=== PATIENT | male | born 1985 | race American Indian/Alaskan Native ===

== ENCOUNTER 2016-12-03 19:47 | Emergency (ER) | payer OTHER ==
[2016-12-03] MEDS: TYLENOL PO ONE (21:06)
--- NOTE | 2016-12-03 23:37 | Emergency Department Report ---
ED Fall HPI - General Chief Complaint: Fall Stated Complaint: FALL Time Seen by Provider: 12/03/16 23:19 Source: patient Mode of arrival: Ambulatory - History of Present Illness Initial Comments: Patient here reported that he fell Friday night down 6-10 steps. He said he was carrying some stuff in his hands and he slipped and fell. Denies any head injury, headache or blurred vision denies any pain or stiffness. Denies any back pain. Complaining abrasions to his lower extremities and both hands and fingers. Pain is 4-10 and no chronic medication taken. Tetanus shot is up-to- date, last year. MD Complaint: fall Onset/Timin -: days(s) Fall From: down stairs (#) (6 steps) When Fall Occurred: # days YACHT HAND (1) Fall Witnessed: yes, by family Place Fall Occurred: home Loss of Consciousness: none Prolonged Down Time?: no Symptoms Prior to Fall: none Location - Extremities: Left: Hand (abrasions and pain), Knee (pain and abrasion ), Foot (abrasiona), Right: Hand, Knee, Foot Severity: mild Severity scale (0 -10): 4 Quality: aching Context: tripped/slipped Associated Symptoms: denies: headache, neck pain, numbness, weakness, chest paint, shortness of breath, abdominal pain, hematuria, unable to walk, lightheaded, vertigo, confusion - Related Data Previous Rx's Medication Instructions Recorded Last Taken Type Cephalexin [Keflex] 500 mg PO Q8HR #21 cap 12/04/16 Unknown Rx Ibuprofen [Motrin] 600 mg PO Q8H PRN #14 tablet 12/04/16 Unknown Rx Allergies Allergy/AdvReac Type Severity Reaction Status Date / Time No Known Allergies Allergy Verified 12/03/16 20:57 ED Review of Systems ROS: Stated complaint: FALL Other details as noted in HPI Comment: All other systems reviewed and negative Constitutional: denies: chills, fever Respiratory: no symptoms reported Cardiovascular: denies: chest pain, palpitations, edema, syncope Gastrointestinal: denies: abdominal pain, nausea, vomiting Musculoskeletal: arthralgia. denies: back pain, joint swelling Skin: other (abrasions) Neurological: denies: headache, weakness, numbness, paresthesias, confusion, abnormal gait, vertigo ED Past Medical Hx - Past Medical History Previous Medical History?: No - Surgical History Past Surgical History?: Yes Additional Surgical History: January 2016 Left Elbow - Family History Family history: no significant - Social History Smoking Status: Current Every Day Smoker Substance Use Type: Alcohol - Medications Home Medications: Home Medications Medication Instructions Recorded Confirmed Last Taken Type Cephalexin [Keflex] 500 mg PO Q8HR #21 cap 12/04/16 Unknown Rx Ibuprofen [Motrin] 600 mg PO Q8H PRN #14 tablet 12/04/16 Unknown Rx ED Physical Exam - General Limitations: No Limitations General appearance: alert, in no apparent distress - Head Head exam: Present: atraumatic, normocephalic, normal inspection - Expanded Head Exam Expanded Head exam: Absent: laceration, abrasion, contusion, hematoma, racoon eyes, post's sign, general tenderness, tenderness of temporal artery, CSF rhinorrhea , CSF otorrhea - Eye Eye exam: Present: normal appearance, PERRL, EOMI. Absent: periorbital swelling , periorbital tenderness Pupils: Present: normal accommodation - Neck Neck exam: Present: normal inspection, full ROM. Absent: tenderness, lymphadenopathy - Respiratory Respiratory exam: Present: normal lung sounds bilaterally. Absent: respiratory distress, chest wall tenderness - Cardiovascular Cardiovascular Exam: Present: regular rate, normal rhythm, normal heart sounds - GI/Abdominal GI/Abdominal exam: Present: soft, normal bowel sounds. Absent: distended, tenderness, guarding, rebound, rigid - Extremities Exam Extremities exam: Present: normal inspection, full ROM, tenderness (mild tenderness at abrasion sites. Which is located on the right hand, fingers left fingers. Knees and both feet.), normal capillary refill, other (capillary refill less than 3 seconds, no signs of tendon injury. No neurovascular compromise. No clubbing cyanosis or edema. +2 pulses.). Absent: pedal edema, joint swelling, calf tenderness - Back Exam Back exam: Present: normal inspection, full ROM. Absent: tenderness, CVA tenderness (R), muscle spasm, paraspinal tenderness, vertebral tenderness, rash noted - Neurological Exam Neurological exam: Present: alert, oriented X3, normal gait, reflexes normal. Absent: motor sensory deficit - Psychiatric Psychiatric exam: Present: normal affect, normal mood - Skin Skin exam: Present: warm, dry, abrasion - Expanded Skin Exam Expanded Type of lesion: Present: abrasion Distribution of rash: RUE, LUE, RLE, LLE Description of rash: Present: tenderness, erythematous (mild erythema). Absent : swelling, vesicular, blisters, discharge, fluctuant, indurated ED Course Vital Signs 12/03/16 12/04/16 20:50 01:05 Temperature 98.8 F 98.1 F Pulse Rate 70 67 Respiratory 20 20 Rate Blood Pressure 142/90 165/77 [Right] O2 Sat by Pulse 100 99 Oximetry - Reevaluation(s) Reevaluation #1: 12/04/16 00:59 Abrasion site cleansed with iodine, normal saline and Neosporin ointment plus site. ED Medical Decision Making - Radiology Data Radiology results: report reviewed X-rays of bilateral knees, bilateral hand and feet reveal no acute fracture or dislocation. - Medical Decision Making ED course: Patient with multiple abrasions status post fall and musculoskeletal pain. Neurological system intact. Abrasions the area cleansed with iodine and normal saline and Neosporin ointment placed to side. Patient tetanus shot is up -to-date. Discussed with patient that I'll put him on antibiotic to prevent infection because the sides look erythema without any drainage. Discussed x- rays with patient. I also told him to follow up with his primary care physician which he does have one. Discharged home with prescription for Keflex and Motrin. Critical care attestation.: If time is entered above; I have spent that time in minutes in the direct care of this critically ill patient, excluding procedure time. ED Disposition Clinical Impression: Abrasion, multiple sites, Arthralgia of multiple sites Accidental fall Qualifiers: Encounter type: initial encounter Qualified Code(s): W19.XXXA - Unspecified fall, initial encounter Disposition: DISCHARGED TO HOME OR SELFCARE Is pt being admited?: No Does the pt Need Aspirin: No Condition: Stable Instructions: Abrasion (ED), Arthralgia (ED) Additional Instructions: Please follow up with her primary care physician in 2 days. Please take antibiotic as prescribed. Prescriptions: Cephalexin [Keflex] 500 mg PO Q8HR #21 cap Ibuprofen [Motrin] 600 mg PO Q8H PRN #14 tablet PRN Reason: Pain Referrals: PRIMARY CARE, [Primary Care Provider] - 12/06/16 Forms: Work/School Release Form(ED)
--- NOTE | 2016-12-03 23:55 | XRay Report ---
FINAL REPORT EXAM: XR FOOT BILAT 3 HISTORY: fall, laceration, pain, send for report TECHNIQUE: Bilateral foot series three views right and three views left PRIORS: None. FINDINGS: No fracture or dislocation identified. Joint spaces are within normal limits. No radiopaque foreign body seen. No soft tissue abnormality identified. IMPRESSION: Negative bilateral foot series
--- NOTE | 2016-12-03 23:56 | XRay Report ---
FINAL REPORT EXAM: XR HAND BILAT 3 HISTORY: fall, laceration, pain, send for report TECHNIQUE: Bilateral hand series three views right and three views left PRIORS: None. FINDINGS: No fracture is identified. No dislocation seen. Joint spaces are within normal limits. No erosive bony change identified. Carpal bones maintain normal alignment. Distal radius and ulna are intact. No radiopaque foreign bodies seen. IMPRESSION: Negative hand series
--- NOTE | 2016-12-03 23:57 | XRay Report ---
FINAL REPORT EXAM: XR KNEE BILAT 3V HISTORY: fall, laceration, pain, send for report TECHNIQUE: Bilateral knee series three views right and three-view left PRIORS: None. FINDINGS: No fracture is identified. No dislocation seen. No evidence of joint effusion. Patella demonstrates normal positioning. No acute bony abnormality identified. IMPRESSION: Negative knee series
[2016-12-04] MEDS: TRIPLE ANTIBIOTIC TP ONE (00:25)
[2016-12-04 01:12] VITALS: BP 165/77
== END 2016-12-04 01:17 | disposition home or self-care (01) ==
LOC: ED 19:47
DX: S60.512A Abrasion of left hand, initial encounter (principal); S60.511A Abrasion of right hand, initial encounter; S80.812A Abrasion, left lower leg, initial encounter; M79.1 Myalgia; F17.200 Nicotine dependence, unspecified, uncomplicated; W18.30XA Fall on same level, unspecified, initial encounter; Y93.9 Activity, unspecified; Y92.9 Unspecified place or not applicable; Y99.9 Unspecified external cause status
CPT/HCPCS: 99283; A6250

== ENCOUNTER 2019-01-18 19:27 | Emergency (ER) | payer OTHER ==
--- NOTE | 2019-01-18 19:53 | Emergency Department Report ---
Blank Doc - Documentation Documentation: This is a 33-year-old male that presents with right index finger lac. This initial assessment/diagnostic orders/clinical plan/treatment(s) is/are subject to change based on patient's health status, clinical progression and re- assessment by fellow clinical providers in the ED. Further treatment and workup at subsequent clinical providers discretion. Patient/guardians urged not to elope from the ED as their condition may be serious if not clinically assessed and managed. Initial orders include: 1- Patient sent to [facility] for further evaluation and treatment
[2019-01-18 19:59] VITALS: BP 138/83
[2019-01-18] MEDS ORDERED: BOOSTRIX IM ONE (22:29)
--- NOTE | 2019-01-18 22:37 | Emergency Department Report ---
ED Laceration HPI - HPI Chief Complaint: Laceration/Recheck/Suture Stated Complaint: CUT ON L INDEX FINGER Time Seen by Provider: 01/18/19 19:53 Occurred When: Today Severity: mild Laceration Symptoms: Yes Pain Other History: 33-year-old -[place] male presents to the emergency room for a laceration to the right second digit from his hair clippers. Patient thin ks he may have had tetanus shot 2 years ago from his hospital. Patient has no past medical history currently takes no medications on a daily basis and has no known drug allergies. ED Review of Systems ROS: Stated complaint: CUT ON L INDEX FINGER Other details as noted in HPI Comment: All other systems reviewed and negative ED Past Medical Hx - Past Medical History Previous Medical History?: No - Surgical History Past Surgical History?: No Additional Surgical History: January 2016 Left Elbow - Social History Smoking Status: Current Every Day Smoker Substance Use Type: None - Medications Home Medications: Home Medications Medication Instructions Recorded Confirmed Last Taken Type Ibuprofen [Motrin] 600 mg PO Q8H PRN #14 tablet 12/04/16 Unknown Rx cephALEXin [Keflex] 500 mg PO Q8HR #21 cap 12/04/16 Unknown Rx Laceration Physical Exam - Exam General: Vital signs noted. No distress. Alert and acting appropriately. Wound Length (cm): 2 Laceration Location: Upper Extremity (right second digit) Laceration Exam: Yes Normal Distal CMS, No Foreign Body, No Exposed Tendon, Vessel, or Nerve, No Tendon Injury ED Course Vital Signs 01/18/19 01/18/19 19:49 19:58 Temperature 98.4 F 98.4 F Pulse Rate 81 81 Respiratory 18 18 Rate Blood Pressure 138/83 Blood Pressure 138/83 [Right] O2 Sat by Pulse 97 98 Oximetry - Laceration /Wound Repair Right Finger Wound Location: upper extremity (right second digit) Wound Length (cm): 2 Wound's Depth, Shape: into muscle Wound Explored: no foreign body removed Irrigated w/ Saline (ccs): 30 Betadine Prep?: Yes Wound Repaired With: Steri-strips, Dermabond Sterile Dressing Applied?: Yes Progress: Tolerated procedure well Critical care attestation.: If time is entered above; I have spent that time in minutes in the direct care of this critically ill patient, excluding procedure time. ED Disposition Clinical Impression: Laceration of finger Disposition: DC- TO HOME OR SELFCARE Is pt being admited?: No Does the pt Need Aspirin: No Condition: Stable Instructions: Skin Adhesive Care (ED) Additional Instructions: Keep wound clean and dry. Referrals: ANAND YO MD [Primary Care Provider] - 3-5 Days
== END 2019-01-18 22:50 | disposition home or self-care (01) ==
LOC: ED 19:27
DX: S61.211A Laceration without foreign body of left index finger without damage to nail, initial encounter (principal); F17.200 Nicotine dependence, unspecified, uncomplicated; W45.8XXA Other foreign body or object entering through skin, initial encounter; Y93.89 Activity, other specified; Y92.89 Other specified places as the place of occurrence of the external cause; Y99.8 Other external cause status
CPT/HCPCS: 99282

== ENCOUNTER 2019-08-13 07:49 | Emergency (ER) | payer BC, OTHER ==
--- NOTE | 2019-08-13 11:31 | Emergency Department Report ---
ED General Adult HPI - General Chief complaint: Pain General Stated complaint: HEMORROIDS Time Seen by Provider: 08/13/19 10:41 Source: patient Mode of arrival: Ambulatory Limitations: No Limitations - History of Present Illness Initial comments: The patient presents to the emergency department with a chief complaint of hemorrhoids. Patient states he has a history hemorrhoids going back to eighth grade. Patient states her last couple weeks she started a new job requires him to do a lot of lifting which has aggravated his hemorrhoids. Patient states he normally has medications at home for his hemorrhoids but has ran out. -: Gradual Location: buttocks Severity scale (0 -10): 3 Quality: burning Consistency: constant Improves with: none Worsens with: none Associated Symptoms: denies other symptoms Treatments Prior to Arrival: none - Related Data Previous Rx's Medication Instructions Recorded Last Taken Type Ibuprofen [Motrin] 600 mg PO Q8H PRN #14 tablet 12/04/16 Unknown Rx cephALEXin [Keflex] 500 mg PO Q8HR #21 cap 12/04/16 Unknown Rx Docusate Sodium [Colace] 100 mg PO BID PRN #30 capsule 08/13/19 Unknown Rx Hydrocort/Pramoxine [Proctofoam-Hc] 10 gm NV BID #20 can 08/13/19 Unknown Rx Hydrocortisone [Anusol-Hc 2.5% TOP 30 gm RC TID #1 cream..g. 08/13/19 Unknown Rx CREAM] Allergies Allergy/AdvReac Type Severity Reaction Status Date / Time No Known Allergies Allergy Verified 12/03/16 20:57 ED Review of Systems ROS: Stated complaint: HEMORROIDS Other details as noted in HPI Comment: All other systems reviewed and negative Constitutional: denies: chills, fever Eyes: denies: eye pain, eye discharge, vision change ENT: denies: ear pain, throat pain Respiratory: denies: cough, shortness of breath, wheezing Cardiovascular: denies: chest pain, palpitations Endocrine: no symptoms reported Gastrointestinal: denies: abdominal pain, nausea, diarrhea Genitourinary: denies: urgency, dysuria Musculoskeletal: denies: back pain, joint swelling, arthralgia Skin: denies: rash, lesions Neurological: denies: headache, weakness, paresthesias Psychiatric: denies: anxiety, depression Hematological/Lymphatic: denies: easy bleeding, easy bruising ED Past Medical Hx - Past Medical History Previous Medical History?: No - Surgical History Past Surgical History?: Yes Additional Surgical History: January 2016 Left Elbow - Social History Smoking Status: Current Every Day Smoker Substance Use Type: None - Medications Home Medications: Home Medications Medication Instructions Recorded Confirmed Last Taken Type Ibuprofen [Motrin] 600 mg PO Q8H PRN #14 tablet 12/04/16 Unknown Rx cephALEXin [Keflex] 500 mg PO Q8HR #21 cap 12/04/16 Unknown Rx Docusate Sodium [Colace] 100 mg PO BID PRN #30 capsule 08/13/19 Unknown Rx Hydrocort/Pramoxine [Proctofoam-Hc] 10 gm NV BID #20 can 08/13/19 Unknown Rx Hydrocortisone [Anusol-Hc 2.5% TOP 30 gm RC TID #1 cream..g. 08/13/19 Unknown Rx CREAM] ED Physical Exam - General Limitations: No Limitations General appearance: alert, in no apparent distress - Head Head exam: Present: atraumatic, normocephalic - Eye Eye exam: Present: normal appearance - ENT ENT exam: Present: mucous membranes moist - Neck Neck exam: Present: normal inspection - Respiratory Respiratory exam: Present: normal lung sounds bilaterally. Absent: respiratory distress - Cardiovascular Cardiovascular Exam: Present: regular rate, normal rhythm. Absent: systolic murmur, diastolic murmur, rubs, gallop - GI/Abdominal GI/Abdominal exam: Present: soft, normal bowel sounds. Absent: distended, tenderness - Rectal Rectal exam: Present: deferred - Extremities Exam Extremities exam: Present: normal inspection - Back Exam Back exam: Present: normal inspection - Neurological Exam Neurological exam: Present: alert, oriented X3, CN II-XII intact. Absent: motor sensory deficit - Psychiatric Psychiatric exam: Present: normal affect, normal mood - Skin Skin exam: Present: warm, dry, intact, normal color. Absent: rash ED Course Vital Signs 08/13/19 07:58 Temperature 98.5 F Pulse Rate 74 Respiratory 18 Rate Blood Pressure 137/82 Blood Pressure 137/82 [Right] O2 Sat by Pulse 99 Oximetry ED Medical Decision Making - Medical Decision Making Discussed plan of care with patient Critical care attestation.: If time is entered above; I have spent that time in minutes in the direct care of this critically ill patient, excluding procedure time. ED Disposition Clinical Impression: Acute hemorrhoid Disposition: DC TO HOME OR SELFCARE Is pt being admited?: No Does the pt Need Aspirin: No Condition: Stable Instructions: Hemorrhoids (ED) Additional Instructions: Return if worse Prescriptions: Hydrocortisone [Anusol-Hc 2.5% TOP CREAM] 30 gm RC TID #1 cream..g. Docusate Sodium [Colace] 100 mg PO BID PRN #30 capsule PRN Reason: Constipation Hydrocort/Pramoxine [Proctofoam-Hc] 10 gm NV BID #20 can Referrals: PRIMARY MD ACE [Primary Care Provider] - 3-5 Days NISH VILLALBA MD [Staff Physician] - 3-5 Days Time of Disposition: 11:31
[2019-08-13 11:46] VITALS: BP 135/92
== END 2019-08-13 11:45 | disposition home or self-care (01) ==
LOC: ED 07:49
DX: K64.8 Other hemorrhoids (principal); F17.200 Nicotine dependence, unspecified, uncomplicated; Z79.899 Other long term (current) drug therapy
CPT/HCPCS: 99282